=== PATIENT | female | born 1990 | race African-American/Black ===

== ENCOUNTER 2017-02-17 18:34 | Emergency (ER) | payer SELFPAY ==
[~2017-02-17] VITALS: Ht 170.2 cm; Wt 85.0 kg
[2017-02-17 18:36] VITALS: BP 138/76; PULSE 90; RESP 16; TEMP 97.8; O2SAT 98
[2017-02-17] MEDS ORDERED: SODIUM CHLOR 0.9% 1000 ML INJ 1,000 ML IV SCH (19:33)
[2017-02-17 19:45] VITALS: O2SAT 100
[2017-02-17] MEDS ORDERED: SODIUM CHLORIDE 0.9% FLUSH 10 ML FLUSH IV FLUSH PRN (19:45)
--- NOTE | 2017-02-17 19:49 | PD ---
HPI Chief Complaint: Pain: Acute or Chronic Time Seen by Provider: 19:34 Travel History International Travel<30 days: No Contact w/Intl Traveler<30days: No Traveled to known affect area: No History of Present Illness HPI Patient is a 27-year-old female presenting to our evaluation of right upper quadrant abdominal pain. Patient states the pain is been ongoing for approximately week and a half. She reports nausea and vomiting after she eats. She states the pain is 8 out of 10 and describes as aching and throbbing. She denies any fever, chills, chest pain, shortness of breath. Pain is unrelieved by anything. She denies any significant past medical history. She further denies any change in bowel habits. Her last menstrual cycle was one week ago. [facility] Past Medical History Medical History: Denies Significant Hx ?: Unknown LMP: 02/12/2017 : 5 Para: 4 Past Surgical History Surgical History: No Previous Surgery Social History Alcohol Use: No Tobacco Use: No Substance Use: No Allergies-Medications (Allergen,Severity, Reaction): Coded Allergies: No Known Allergies (Unverified , 02/17/17) Reported Meds & Prescriptions Reported Meds & Active Scripts Active No Active Prescriptions or Reported Medications Review of Systems Except as stated in HPI: all other systems reviewed are Neg General / Constitutional: No: Fever, Chills HENT: No: Headaches Cardiovascular: No: Chest Pain or Discomfort Respiratory: No: Shortness of Breath Gastrointestinal: Positive: Nausea, Vomiting, Abdominal Pain Genitourinary: No: Dysuria, Discharge Neurologic: No: Weakness, Dizziness Physical Exam Narrative GENERAL: Overweight, well-developed, alert female. Resting comfortably in no acute distress. SKIN: Warm and dry. HEAD: Atraumatic. Normocephalic. EYES: Pupils equal and round. No scleral icterus. No injection or drainage. ENT: No nasal bleeding or discharge. Mucous membranes pink and moist. NECK: Trachea midline. No JVD. CARDIOVASCULAR: Regular rate and rhythm. RESPIRATORY: No accessory muscle use. Clear to auscultation. Breath sounds equal bilaterally. GASTROINTESTINAL: Abdomen soft, tender to palpation in right upper quadrant, nondistended. Hepatic and splenic margins not palpable. Positive Vasquez's sign. Positive bowel sounds MUSCULOSKELETAL: Extremities without clubbing, cyanosis, or edema. No obvious deformities. NEUROLOGICAL: Awake and alert. No obvious cranial nerve deficits. Motor grossly within normal limits. Five out of 5 muscle strength in the arms and legs. Normal speech. PSYCHIATRIC: Appropriate mood and affect; insight and judgment normal. Data Data Last Documented VS Vital Signs Date Time Temp Pulse Resp B/P (MAP) Pulse Ox O2 Delivery O2 Flow Rate FiO2 02/17/17 19:45 100 02/17/17 18:36 97.8 90 16 Orders Orders Complete Blood Count With Diff (02/17/17 19:33) Comprehensive Metabolic Panel (02/17/17 19:33) Lipase (02/17/17 19:33) Us Abdomen Gallbladder (02/17/17 ) Iv Access Insert/Monitor (02/17/17:33) Ecg Monitoring (02/17/17:33) Oximetry (02/17/17:33) NPO (02/17/17 19:33) Sodium Chlor 0.9% 1000 Ml Inj (Ns 1000 M (02/17/17 19:33) Sodium Chloride 0.9% Flush (Ns Flush) (02/17/17 19:45) Labs Laboratory Tests Test 02/17/17 19:34 White Blood Count 8.8 TH/MM3 Red Blood Count 4.04 MIL/MM3 Hemoglobin 11.9 GM/DL Hematocrit 35.2 % Mean Corpuscular Volume 87.2 FL Mean Corpuscular Hemoglobin 29.5 PG Mean Corpuscular Hemoglobin Concent 33.8 % Red Cell Distribution Width 13.2 % Platelet Count 248 TH/MM3 Mean Platelet Volume 10.1 FL Neutrophils (%) (Auto) 69.0 % Lymphocytes (%) (Auto) 18.8 % Monocytes (%) (Auto) 10.4 % Eosinophils (%) (Auto) 1.2 % Basophils (%) (Auto) 0.6 % Neutrophils # (Auto) 6.1 TH/MM3 Lymphocytes # (Auto) 1.7 TH/MM3 Monocytes # (Auto) 0.9 TH/MM3 Eosinophils # (Auto) 0.1 TH/MM3 Basophils # (Auto) 0.1 TH/MM3 CBC Comment DIFF FINAL Differential Comment Blood Urea Nitrogen 14 MG/DL Creatinine 0.65 MG/DL Random Glucose 91 MG/DL Total Protein 8.3 GM/DL Albumin 3.5 GM/DL Calcium Level 8.9 MG/DL Alkaline Phosphatase 86 U/L Aspartate Amino Transf (AST/SGOT) 12 U/L Alanine Aminotransferase (ALT/SGPT) 14 U/L Total Bilirubin 0.1 MG/DL Sodium Level 136 MEQ/L Potassium Level 3.7 MEQ/L Chloride Level 105 MEQ/L Carbon Dioxide Level 24.5 MEQ/L Anion Gap 7 MEQ/L Estimat Glomerular Filtration Rate 132 ML/MIN Lipase 96 U/L MDM Medical Decision Making Medical Screen Exam Complete: Yes Emergency Medical Condition: Yes Interpretation(s) Last Impressions Gall Bladder Ultrasound 02/17/17 0000 Signed Impressions: Service Date/Time: February 20:04 - CONCLUSION: No acute disease. Raimundo Barrera MD Laboratory Tests Test 02/17/17 19:34 White Blood Count 8.8 TH/MM3 Red Blood Count 4.04 MIL/MM3 Hemoglobin 11.9 GM/DL Hematocrit 35.2 % Mean Corpuscular Volume 87.2 FL Mean Corpuscular Hemoglobin 29.5 PG Mean Corpuscular Hemoglobin Concent 33.8 % Red Cell Distribution Width 13.2 % Platelet Count 248 TH/MM3 Mean Platelet Volume 10.1 FL Neutrophils (%) (Auto) 69.0 % Lymphocytes (%) (Auto) 18.8 % Monocytes (%) (Auto) 10.4 % Eosinophils (%) (Auto) 1.2 % Basophils (%) (Auto) 0.6 % Neutrophils # (Auto) 6.1 TH/MM3 Lymphocytes # (Auto) 1.7 TH/MM3 Monocytes # (Auto) 0.9 TH/MM3 Eosinophils # (Auto) 0.1 TH/MM3 Basophils # (Auto) 0.1 TH/MM3 CBC Comment DIFF FINAL Differential Comment Blood Urea Nitrogen 14 MG/DL Creatinine 0.65 MG/DL Random Glucose 91 MG/DL Total Protein 8.3 GM/DL Albumin 3.5 GM/DL Calcium Level 8.9 MG/DL Alkaline Phosphatase 86 U/L Aspartate Amino Transf (AST/SGOT) 12 U/L Alanine Aminotransferase (ALT/SGPT) 14 U/L Total Bilirubin 0.1 MG/DL Sodium Level 136 MEQ/L Potassium Level 3.7 MEQ/L Chloride Level 105 MEQ/L Carbon Dioxide Level 24.5 MEQ/L Anion Gap 7 MEQ/L Estimat Glomerular Filtration Rate 132 ML/MIN Lipase 96 U/L Vital Signs Date Time Temp Pulse Resp B/P (MAP) Pulse Ox O2 Delivery O2 Flow Rate FiO2 02/17/17 18:36 97.8 90 16 138/76 (96) 98 Differential Diagnosis Cholecystitis versus pancreatitis versus viral gastroenteritis versus other Narrative Course Patient presented to the emergency department evaluation right upper quadrant abdominal pain. She is also reported nausea and vomiting with meals. Labs and imaging ordered and pending, patient's vital signs are stable and she is afebrile. Patient appears well. Labs reviewed, no acute abnormalities identified. Ultrasound gallbladder is negative for acute abnormality. At this time pain may be more musculoskeletal in nature. Patient is lifting her 2-year-old daughter. Additionally she may have had some viral symptoms causing the nausea and vomiting. Patient will be provided with a prescription for nausea medication. She will be given written information regarding the [facility]. Precautions should her symptoms worsen or change. Patient verbalizes understanding of these instructions. Patient is stable for discharge. Diagnosis Primary Impression: Musculoskeletal strain Additional Impressions: Abdominal wall pain Nausea and vomiting Qualified Codes: R11.2 - Nausea with vomiting, unspecified Referrals: [facility] 1 week Patient Instructions: Acute Nausea and Vomiting (ED), General Instructions, Muscle Strain (ED) Additional Instructions: Follow-up at the [facility] Take medications as directed and as needed Return to emergency department immediately for any new or worsening symptoms Take ibuprofen with a small meal to avoid GI upset Med/Other Pt SpecificInfo: Prescription(s) given Scripts Ibuprofen (Ibuprofen) 800 Mg Tab 800 MG PO Q6HR Y for PAIN, #40 TAB 0 Refills Prov: Belinda Perera 02/17/17 Ondansetron Odt (Zofran Odt) 4 Mg Tab 4 MG SL Q6HR Y for Nausea/Vomiting, #30 TAB 0 Refills Prov: Belinda Perera 02/17/17 Disposition: 01 DISCHARGE HOME Condition: Stable Belinda Perera Feb 17, 2017 19:49
[2017-02-17 19:57] LABS: AUTOMATED NEUTROPHIL # 6.1 TH/MM3 (1.8-7.7); BASOPHIL # 0.1 TH/MM3 (0-0.2); BASOPHIL % 0.6 % (0.0-2.0); EOSINOPHIL # 0.1 TH/MM3 (0-0.4); EOSINOPHIL % 1.2 % (0.0-4.0); HEMATOCRIT 35.2 % (35.0-46.0); HEMO FLAGS DIFF FINAL; LYMPH % 18.8 % (9.0-44.0); LYMPHOCYTE # 1.7 TH/MM3 (1.0-4.8); MEAN CELL VOLUME 87.2 FL (80.0-100.0); MEAN CORPUSCULAR HEMOGLOBIN 29.5 PG (27.0-34.0); MEAN CORPUSCULAR HGB CONC 33.8 % (32.0-36.0); MONO % 10.4 % (0.0-8.0); PLATELET COUNT 248 TH/MM3 (150-450); RED BLOOD COUNT 4.04 MIL/MM3 (4.00-5.30); RED CELL DISTRIBUTION WIDTH 13.2 % (11.6-17.2); WHITE BLOOD COUNT 8.8 TH/MM3 (4.0-11.0)
[2017-02-17 20:14] LABS: ANION GAP 7 MEQ/L (5-15); AST (GOT) 12 U/L (15-37); BICARBONATE 24.5 MEQ/L (21.0-32.0); BLOOD UREA NITROGEN 14 MG/DL (7-18); CHLORIDE 105 MEQ/L (98-107); GLOMERULAR FILTRATION RATE 132 ML/MIN (>89); POTASSIUM 3.7 MEQ/L (3.5-5.1); SODIUM (NA) 136 MEQ/L (136-145)
[2017-02-17 20:15] LABS: ALT (GPT) 14 U/L (10-53)
[2017-02-17 20:18] LABS: ALKALINE PHOSPHATASE 86 U/L (45-117); TOTAL BILIRUBIN ADULT 0.1 MG/DL (0.2-1.0)
--- NOTE | 2017-02-17 21:00 | RADRPT ---
EXAM DATE/TIME: 02/17/2017 20:04 [place] COMPARISON: No previous studies available for comparison. INDICATIONS : Right upper quadrant pain. MEDICAL HISTORY : Abdominal pain. SURGICAL HISTORY : None. ENCOUNTER: Initial ACUITY: 3 days PAIN SCORE: 8/10 LOCATION: Right upper quadrant MEASUREMENTS: LIVER: 13.6 cm length COMMON DUCT: 3 mm RIGHT KIDNEY: 10.8 x 4.5 x 4.6 cm FINDINGS: LIVER: Normal echotexture without focal lesion or ductal dilatation. COMMON DUCT: No intraluminal mass or stone visualized. GALLBLADDER: Contains no stones, demonstrates no wall thickening or pericholecystic fluid. The gallbladder is cont racted. PANCREAS: The visualized portions are within normal limits. RIGHT KIDNEY: No evidence of hydronephrosis, stone, or mass. CONCLUSION: No acute disease. Raimundo Barrera MD on February 17, 2017 at 20:58 Board Certified Radiologist. This report was verified electronically.
[2017-02-17] MEDS ORDERED: IBUP800T23 PO (21:26)
[2017-02-17] MEDS ORDERED: ZOFR4TAB3 SL (21:26)
== END 2017-02-17 21:43 | disposition home or self-care (01) ==
LOC: NEPD 18:34
DX: R10.11 Right upper quadrant pain (principal); R11.2 Nausea with vomiting, unspecified; T14.8XXA Other injury of unspecified body region, initial encounter; X58.XXXA Exposure to other specified factors, initial encounter
CPT/HCPCS: 76705; 80053; 83690; 85025; 99284; J7030